=== PATIENT | male | born 1955 | race Caucasian/White ===

== ENCOUNTER 2018-11-13 12:17 | Emergency (ER) | payer OTHER ==
[~2018-11-13] VITALS: Ht 188 cm; Wt 86.6 kg
[~2018-11-13 12:17] MED LIST: ASPIRIN EC325 M1 PO; COUMADIN 2 MG TA2 M1; ENBREL; LISINOPRIL10 MG PO; NICOTINE TRANSD14 M1 TD; NICOTINE TRANSD21 M1 TD; NICOTINE TRANSDE7 MG TD; PLAVIX 75 MG TA75 MG PO; PREDNISONE 10 M10 M1
[2018-11-13] MEDS ORDERED: XELJANZ5 MG PO (12:26)
[2018-11-13] MEDS ORDERED: METHOTREXATE 22.5 MG PO (12:26)
[2018-11-13] MEDS ORDERED: PREDNISONE 5 MG5 M1 PO (12:27)
[2018-11-13 12:42] LABS: ABSOLUTE BASOPHILS 0.1 thou/uL (0.0-0.2); ABSOLUTE EOSINOPHILS 0.1 thou/uL (0.0-0.7); ABSOLUTE LYMPHOCYTES 1.8 thou/uL (0.8-5.3); ABSOLUTE MONOCYTES 0.4 thou/uL (0.0-1.2); ABSOLUTE NEUTROPHILS 4.2 thou/uL (1.6-8.1); BASOPHILS 1.5 %; EOSINOPHILS 1.1 %; HEMATOCRIT 39.5 % (42.0-52.0); HEMOGLOBIN 13.3 gm/dL (14.0-18.0); LYMPHOCYTES 27.2 %; MCH 32.9 pg (26.0-34.0); MCHC 33.6 g/dL (28.0-37.0); MCV 97.9 fL (80.0-100.0); MONOCYTES 6.5 %; MPV 8.2 fl. (7.2-11.1); NUCLEATED RBCS 0 /100WBC; PLATELET COUNT* 275 thou/uL (150-400); POLYS 63.7 %; RBC 4.03 mil/uL (4.50-6.00); RDW-CV 16.1 % (10.5-14.5); WBC 6.6 thou/uL (4.0-11.0)
[2018-11-13 12:51] LABS: ANION GAP 11 mmol/L (7-16); BUN 14 mg/dL (7-18); CALCIUM 8.9 mg/dL (8.5-10.1); CHLORIDE 103 mmol/L (98-107); CO2 27 mmol/L (21-32); CREATININE 0.9 mg/dL (0.6-1.3); GLUCOSE 105 mg/dL (70-99); POTASSIUM 3.9 mmol/L (3.5-5.1); SODIUM 141 mmol/L (136-145)
[2018-11-13 13:03] LABS: ALBUMIN 3.6 g/dL (3.4-5.0); ALKALINE PHOSPHATASE 61 U/L (46-116); LIPASE 103 U/L (73-393); MAGNESIUM 1.9 mg/dL (1.8-2.4); NT-PRO BRAIN NAT PEPTIDE 56 pg/mL (<300); SGOT 14 U/L (15-37); SGPT 31 U/L (30-65); TOTAL BILIRUBIN 0.7 mg/dL (<0.1-1.0); TOTAL PROTEIN 7.2 g/dL (6.4-8.2); TROPONIN-I LEVEL <0.06 ng/mL (<0.06)
[2018-11-13 15:10] VITALS: BP 129/79
--- NOTE | 2018-11-15 14:48 | EKG ---
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1955 Requested By: Darryl Shaw Order Number: [id number] MD: Julian Whitlock Measurements Intervals [place] Rate: 69 P: -63 MN: 148 QRS: -49 QRSD: 96 T: -31 QT: 379 QTc: 406 Interpretive Statements Sinus or ectopic atrial rhythm Left atrial enlargement Inferior infarct, age indeterminate Baseline wander in lead(s) V2 No previous ECG available for comparison Electronically Signed On 11-15-2018 14:48:23 CDT by Julian Whitlock [email or web address] <ELECTRONICALLY SIGNED> By: Julian Whitlock MD, [facility] 11/15/18 1448 1222 122 Julian Whitlock MD, FACC /EPI
== END 2018-11-13 15:10 | disposition still patient (30) ==
LOC: M.ERS 12:17 → M.SUR 12:17 → M.ERS 15:10
PROVIDERS: Emergency Medicine Emergency Medical Services
DX: T18.128A Food in esophagus causing other injury, initial encounter (principal); I10 Essential (primary) hypertension; M06.9 Rheumatoid arthritis, unspecified; G89.29 Other chronic pain; M54.9 Dorsalgia, unspecified; Z96.653 Presence of artificial knee joint, bilateral; Z98.890 Other specified postprocedural states; X58.XXXA Exposure to other specified factors, initial encounter; Y93.89 Activity, other specified; Y92.89 Other specified places as the place of occurrence of the external cause; Y99.8 Other external cause status

== ENCOUNTER 2018-11-30 21:22 | Emergency (ER) | payer OTHER ==
[~2018-11-30] VITALS: Ht 188 cm; Wt 81.7 kg
[~2018-11-30 21:22] MED LIST changes: +METHOTREXATE 22.5 MG PO; +PREDNISONE 5 MG5 M1 PO; +XELJANZ5 MG PO
[2018-11-30 21:26] VITALS: BP 155/91
[2018-11-30] MEDS ORDERED: ZYRTEC 10 MG TA10 MG PO (21:34)
[2018-11-30] MEDS ORDERED: PREDNISONE 20 M20 M1 PO (21:34)
[2018-11-30] MEDS ORDERED: PEPCID40 MG PO (21:34)
== END 2018-11-30 21:55 | disposition home or self-care (01) ==
LOC: M.ERS 21:22
DX: L50.9 Urticaria, unspecified (principal); I10 Essential (primary) hypertension; M06.9 Rheumatoid arthritis, unspecified; Z96.653 Presence of artificial knee joint, bilateral

== ENCOUNTER 2020-10-21 18:13 | Emergency (ER) | payer OTHER ==
[~2020-10-21] VITALS: Ht 185.4 cm; Wt 83.9 kg
[~2020-10-21 18:13] MED LIST changes: +PEPCID40 MG PO; +PREDNISONE 20 M20 M1 PO; -PREDNISONE 5 MG5 M1 PO; +PREDNISONE 5 MG5 MG PO; +ZYRTEC 10 MG TA10 MG PO
[2020-10-21] MEDS ORDERED: OMEPRAZOLE20 M2 PO (18:35)
[2020-10-21 19:11] LABS: HEMATOCRIT 38.9 % (42.0-52.0); HEMOGLOBIN 13.2 gm/dL (14.0-18.0); MCH 33.8 pg (26.0-34.0); MCV 99.2 fL (80.0-100.0); MPV 7.5 fl. (7.2-11.1); NUCLEATED RBCS 0 /100WBC; PLATELET COUNT* 249 thou/uL (150-400); RBC 3.92 mil/uL (4.50-6.00); RDW-CV 16.9 % (10.5-14.5); WBC 7.2 thou/uL (4.0-11.0)
[2020-10-21 19:16] LABS: CALCIUM 8.2 mg/dL (8.5-10.1); CREATININE 0.9 mg/dL (0.6-1.3); POTASSIUM 3.5 mmol/L (3.5-5.1)
[2020-10-21 19:20] LABS: ALBUMIN 3.5 g/dL (3.4-5.0); TOTAL BILIRUBIN 0.5 mg/dL (<0.1-1.0); TOTAL PROTEIN 6.8 g/dL (6.4-8.2)
[2020-10-21 19:58] LABS: ABSOLUTE LYMPHOCYTES 0.3 thou/uL (0.8-5.3); ABSOLUTE MONOCYTES 0.2 thou/uL (0.0-1.2); ABSOLUTE NEUTROPHILS 6.7 thou/uL (1.6-8.1); PLATELET ESTIMATE ADEQUATE
[2020-10-21 19:59] LABS: ANISOCYTOSIS 1+
[2020-10-21 20:01] LABS: URINE BILIRUBIN NEGATIVE (Negative); URINE BLOOD NEGATIVE (Negative); URINE CLARITY CLEAR; URINE COLOR YELLOW; URINE GLUCOSE-RANDOM NEGATIVE (Negative); URINE KETONES NEGATIVE (Negative); URINE LEUKOCYTES-REFLEX NEGATIVE (Negative); URINE NITRITE-REFLEX NEGATIVE (Negative); URINE PROTEIN NEGATIVE (Negative); URINE SPECIFIC GRAVITY 1.025 (1.005-1.030); URINE UROBILINOGEN 0.2 E.U./dl (0.2-1.0)
[2020-10-21] MEDS ORDERED: AUGMENTIN 875-1 EACH PO (20:24)
[2020-10-21 20:38] VITALS: BP 154/85
--- NOTE | 2020-10-22 10:58 | EKG ---
[place] [address] ELECTROCARDIOGRAM REPORT Name: MARKY CALDERON Room: [facility]#: [id number] Admission: 10/21/20 Attend Phys: Discharge: 10/21/20 Date of : 53 Date of Service: 10/21/201851 Report #: [id number] THIS REPORT FOR: //name// [facility] ED Test Date: 2020-10-21 Test Time: 18:52:29 Pat Name: MARKY CALDERON Department: Room: Gender: [employer] Work[employer]: : 1955 Requested By: Yvonne Biggs Order Number: [id number] MD: Rhys Johnston Measurements Intervals [place] Rate: 83 P: 39 KS: 157 QRS: 23 QRSD: 94 T: 56 QT: 353 QTc: 415 Interpretive Statements Sinus rhythm Multiple ventricular premature complexes Borderline ST depression, anterolateral leads Baseline wander in lead(s) I,II,aVR,aVF,V3,V4,V5,V6 Compared to ECG 11/13/2018 12:22:11 Ventricular premature complex(es) now present ST (T wave) deviation now present Atrial abnormality no longer present Myocardial infarct finding no longer present Electronically Signed On 10-22-2020 10:58:11 CDT by Rhys Johnston [email or web address] <ELECTRONICALLY SIGNED> By: Rhys Johnston MD, [facility] 10/22/20 1058 51 51 Rhys Johnston MD, [facility] /EPI
[2020-10-22] MEDS ORDERED: ZOFRAN ODT4 MG PO (12:13)
[2020-10-22] MEDS ORDERED: DOXYCYCLINE 10100 MG PO (12:13)
[2020-10-22] MEDS ORDERED: AUGMENTIN 875-1 EACH PO (12:26)
== END 2020-10-21 20:39 | disposition home or self-care (01) ==
LOC: M.ERS 18:13
PROVIDERS: Nurse Practitioner Family
DX: R50.9 Fever, unspecified (principal); R19.7 Diarrhea, unspecified; I10 Essential (primary) hypertension; G89.29 Other chronic pain; M06.9 Rheumatoid arthritis, unspecified; Z96.653 Presence of artificial knee joint, bilateral; Z87.891 Personal history of nicotine dependence

== ENCOUNTER 2020-10-22 09:51 | Emergency (ER) | payer OTHER ==
[~2020-10-22] VITALS: Ht 182.9 cm; Wt 86.2 kg
[~2020-10-22 09:51] MED LIST changes: +AUGMENTIN 875-1 EACH PO; +OMEPRAZOLE20 M2 PO
[2020-10-22 10:39] LABS: HEMATOCRIT 35.1 % (42.0-52.0); MCH 33.9 pg (26.0-34.0); MCHC 34.3 g/dL (28.0-37.0); MCV 98.9 fL (80.0-100.0); MPV 7.3 fl. (7.2-11.1); NUCLEATED RBCS 0 /100WBC; PLATELET COUNT* 231 thou/uL (150-400); RBC 3.55 mil/uL (4.50-6.00); RDW-CV 16.7 % (10.5-14.5); WBC 5.3 thou/uL (4.0-11.0)
[2020-10-22 11:00] LABS: CALCIUM 7.6 mg/dL (8.5-10.1); CREATININE 0.8 mg/dL (0.6-1.3); POTASSIUM 3.3 mmol/L (3.5-5.1)
[2020-10-22 11:01] LABS: ABSOLUTE LYMPHOCYTES 0.5 thou/uL (0.8-5.3); ABSOLUTE MONOCYTES 0.3 thou/uL (0.0-1.2); ABSOLUTE NEUTROPHILS 4.6 thou/uL (1.6-8.1); PLATELET ESTIMATE ADEQUATE
[2020-10-22 11:04] LABS: ALBUMIN 3.1 g/dL (3.4-5.0); TOTAL BILIRUBIN 0.5 mg/dL (<0.1-1.0); TOTAL PROTEIN 6.4 g/dL (6.4-8.2)
[2020-10-22 11:26] LABS: URINE BILIRUBIN NEGATIVE (Negative); URINE BLOOD TRACE (Negative); URINE CLARITY CLEAR; URINE COLOR YELLOW; URINE GLUCOSE-RANDOM NEGATIVE (Negative); URINE KETONES NEGATIVE (Negative); URINE LEUKOCYTES-REFLEX NEGATIVE (Negative); URINE NITRITE-REFLEX NEGATIVE (Negative); URINE PROTEIN TRACE (Negative); URINE SPECIFIC GRAVITY >= 1.030 (1.005-1.030); URINE UROBILINOGEN 0.2 E.U./dl (0.2-1.0)
[2020-10-22] MEDS ORDERED: ZOFRAN ODT4 MG PO (12:13)
[2020-10-22] MEDS ORDERED: DOXYCYCLINE 10100 MG PO (12:13)
[2020-10-22] MEDS ORDERED: AUGMENTIN 875-1 EACH PO (12:26)
[2020-10-22 12:47] VITALS: BP 123/73
== END 2020-10-22 12:48 | disposition home or self-care (01) ==
LOC: M.ERS 09:51
PROVIDERS: Nurse Practitioner Family
DX: K51.30 Ulcerative (chronic) rectosigmoiditis without complications (principal); Z20.822 Contact with and (suspected) exposure to COVID-19; F17.200 Nicotine dependence, unspecified, uncomplicated; I10 Essential (primary) hypertension; G89.29 Other chronic pain; Z79.899 Other long term (current) drug therapy